=== PATIENT | female | born 2000 | race Caucasian/White ===

== ENCOUNTER 2024-06-18 15:26 | Emergency (ER) | payer BC ==
[2024-06-18] MEDS ORDERED: Ibuprofen 200 MG TAB ONE (18:04)
== END 2024-06-18 18:30 | disposition home or self-care (01) ==
LOC: CSHERS 15:26
DX: S33.8XXA Sprain of other parts of lumbar spine and pelvis, initial encounter (principal); S80.02XA Contusion of left knee, initial encounter; S80.01XA Contusion of right knee, initial encounter; W11.XXXA Fall on and from ladder, initial encounter
CPT/HCPCS: 72220; 99283